=== PATIENT | female | born 1945 | race Two or more races ===

== ENCOUNTER 2016-08-05 14:29 | Emergency (ER) | payer OTHER, MEDICAID ==
[~2016-08-05] VITALS: Ht 160 cm; Wt 73.0 kg
[2016-08-05 20:00] VITALS: BP 161/71
== END 2016-08-05 21:23 | disposition home or self-care (01) ==
LOC: ER 18:07
DX: S82.61XA Displaced fracture of lateral malleolus of right fibula, initial encounter for closed fracture (principal); I10 Essential (primary) hypertension; V79.60XA Unspecified bus occupant injured in collision with unspecified motor vehicles in traffic accident, initial encounter; Y93.89 Activity, other specified; Y99.8 Other external cause status
CPT/HCPCS: 29515; 73590; 73610; 99284

== ENCOUNTER 2022-11-04 12:50 | Emergency (ER) | payer MEDICAID, MEDICARE ==
[~2022-11-04] VITALS: Ht 170.2 cm; Wt 85.0 kg
[2022-11-04 13:03] VITALS: BP 103/71; PULSE 70; RESP 19; TEMP 98.6; O2SAT 96
[2022-11-04] MEDS ORDERED: NAPR-1176 MT (16:02)
[2022-11-04] MEDS ORDERED: LIDO700A15 TP (16:02)
== END 2022-11-04 17:19 | disposition home or self-care (01) ==
LOC: ER 12:50
DX: M25.562 Pain in left knee (principal); M25.561 Pain in right knee; M25.551 Pain in right hip; I10 Essential (primary) hypertension; V03.90XA Pedestrian on foot injured in collision with car, pick-up truck or van, unspecified whether traffic or nontraffic accident, initial encounter; Y93.89 Activity, other specified; Y92.89 Other specified places as the place of occurrence of the external cause; Y99.8 Other external cause status
CPT/HCPCS: 73502; 73560; 99284

== ENCOUNTER 2023-05-08 15:26 | Emergency (ER) | payer MEDICAID, MEDICARE ==
[~2023-05-08] VITALS: Ht 165.1 cm; Wt 64.0 kg
[~2023-05-08 15:26] MED LIST: LIDO700A15 TP; NAPR-1176 MT
[2023-05-08 15:31] VITALS: O2SAT 99
[2023-05-08] MEDS: LIDOCAINE HCL/PF 1% 10 MG/ML 5ML VIAL INFIL ONE (16:11)
[2023-05-08] MEDS: BACITRACIN ZINC OINT UDPKT TOP ONE (16:11)
[2023-05-08] MEDS: TETANUS, DIPHTHERIA, PERTUSSIS VAC/PF 0.5ML (>10YR OLD) IM ONE (16:12)
[2023-05-08 18:51] VITALS: BP 134/85; PULSE 80; RESP 16; TEMP 97.6
== END 2023-05-08 19:00 | disposition home or self-care (01) ==
LOC: ER 15:26
DX: S01.112A Laceration without foreign body of left eyelid and periocular area, initial encounter (principal); S06.0X0A Concussion without loss of consciousness, initial encounter; I10 Essential (primary) hypertension; X58.XXXA Exposure to other specified factors, initial encounter; Y93.89 Activity, other specified; Y92.89 Other specified places as the place of occurrence of the external cause; Y99.8 Other external cause status
CPT/HCPCS: 70450; 90715; 90471; 99285; J3490; Z7610 ×2